=== PATIENT | female | born 1985 | race Caucasian/White ===

== ENCOUNTER 2020-09-29 11:00 | Outpatient (REF) | payer OTHER, SELFPAY | END 2020-09-29 11:01 | disposition home or self-care (01) | LOC: HO.LAB 11:00 | PROVIDERS: PCP Pediatrics; Visit Provider Internal Medicine | DX: Z20.822 Contact with and (suspected) exposure to COVID-19 (principal) | CPT/HCPCS: 36415; C9803; U0003 ==

== ENCOUNTER 2022-05-21 08:00 | Outpatient (REF) | payer OTHER, SELFPAY ==
--- NOTE | ~2022-05-21 | US_ITS ---
EXAMINATION: US LOWER EXTREMITY VENOUS (REFLUX EXAM), BILATERAL CLINICAL INDICATION: This is a 36-year-old female with venous insufficiency and varicose veins. COMPARISON: None. TECHNIQUE: Color flow triplex imaging and compression Doppler was performed to evaluate both the deep and the superficial systems bilaterally. To evaluate the superficial system, the examination was performed in the upright position. Color-flow Doppler ultrasound and compression ultrasound were utilized. In addition, maneuvers were utilized to demonstrate reflux. FINDINGS: 1. DEEP VENOUS ULTRASOUND OF THE RIGHT LOWER EXTREMITY: Common Femoral Vein: Compressible, normal respiratory variation and augmented flow. Femoral vein: Compressible, but with reflux of 2600 ms.. Popliteal Vein: Compressible, normal augmentation. Deep Reflux: There is evidence of reflux in the deep system in either the common femoral vein or the popliteal vein. There is no evidence of a Guzman's cyst. 2. SUPERFICIAL ULTRASOUND WITH DOPPLER OF RIGHT LOWER EXTREMITY: GREAT SAPHENOUS VEIN: Saphenofemoral Junction: 0.8 cm. There is no reflux. Mid Thigh: 0.5 cm. There is no reflux. Above Knee: 0.4 cm. There is no reflux. Below Knee: 0.2 cm. There is no reflux. Mid Calf: 0.2 cm. The reflux time is 544 ms. Ankle: 0.2 cm. There is no reflux. GSV REFLUX: There is isolated reflux in the mid calf. There is no reflux at the junction. DUPLICATED GREAT SAPHENOUS VEIN: None SMALL SAPHENOUS VEIN: Proximal: 0.2 cm. The reflux time is 3060 ms. Distal: 0.2 cm. There is no reflux. SSV REFLUX: There is reflux at the junction. VEIN OF GIACOMINI: None Imaged. PERFORATORS: There is a 0.1 recreational specialist in the mid thigh without reflux. VARICOSITIES: There are 0.4 cm, 0.6 cm, 0.3 cm varicose veins without reflux. The varicose veins are seen in the proximal thigh and mid calf, respectively. 3. DEEP VENOUS ULTRASOUND OF THE LEFT LOWER EXTREMITY: Common Femoral Vein: Compressible, normal respiratory variation and augmented flow. Femoral Vein: Compressible, normal color flow and augmentation. Popliteal Vein: Compressible, normal augmentation. Deep Reflux: There is no evidence of reflux in the deep system in either the common femoral vein or the popliteal vein. There is no evidence of a Guzman's cyst. 4. SUPERFICIAL ULTRASOUND WITH DOPPLER OF LEFT LOWER EXTREMITY: GREAT SAPHENOUS VEIN: Saphenofemoral Junction: 0.8 cm Mid Thigh: 0.3 cm Above Knee: 0.2 cm Below Knee: 0.2 cm. The reflux time is 1272 ms. There is no reflux above or below. Mid Calf: 0.3 cm Ankle: 0.2 cm GSV REFLUX: There is only isolated reflux below the knee. DUPLICATED GREAT SAPHENOUS VEIN: None SMALL SAPHENOUS VEIN: Proximal: 0.1 cm Distal: 0.2 cm SSV REFLUX: There is no reflux at the junction. VEIN OF GIACOMINI: None Imaged. PERFORATORS: There are 0.3 cm distal calf perforators without reflux. VARICOSITIES: There are 0.6 cm distal calf perforators with greater than 2 seconds of reflux. There is a 1.4 cm proximal thigh varicose vein with grade 2 seconds of reflux. There are 0.3 cm proximal calf varicose veins with greater than 3 seconds of reflux. US/US venous duplex LE BI IMPRESSION: 1. There is a patent right great saphenous vein without evidence of reflux at the junction. 2. There is a patent right small saphenous vein with reflux at the junction. 3. There are varicose veins in the right leg without reflux. 4. There is a patent left great saphenous vein without reflux at the junction. 5. There is a patent left small saphenous vein without reflux at the junction. 6. There are varicose veins with reflux of greater than 2 seconds throughout the left lower extremity.
== END 2022-05-21 08:01 | disposition home or self-care (01) ==
LOC: HO.US 08:00
PROVIDERS: PCP Internal Medicine; Visit Provider Surgery Vascular Surgery
DX: I83.12 Varicose veins of left lower extremity with inflammation (principal)
CPT/HCPCS: 93970

== ENCOUNTER → 2022-07-04 10:26 | Outpatient (BNVA) | payer OTHER, SELFPAY | PROVIDERS: PCP Internal Medicine; Visit Provider Surgery Vascular Surgery | DX: I83.12 Varicose veins of left lower extremity with inflammation (principal) | CPT/HCPCS: 37766 ==

== ENCOUNTER 2022-08-22 16:06 | Outpatient (REF) | payer OTHER, SELFPAY ==
--- NOTE | ~2022-08-22 | XR_ITS ---
EXAMINATION: XR CHEST CLINICAL INFORMATION: Cough COMPARISON: None TECHNIQUE: 2 views of the chest were obtained. FINDINGS: The lungs are well expanded. There is no focal consolidation, edema, or effusion. No pneumothorax. The cardiomediastinal silhouette is within normal limits. No acute osseous abnormality. XR/XR chest 2V IMPRESSION: Clear lungs.
== END 2022-08-22 16:07 | disposition home or self-care (01) ==
LOC: HO.HMGCX 16:06
PROVIDERS: PCP Internal Medicine
DX: R05.9 Cough, unspecified (principal)
CPT/HCPCS: 71046

== ENCOUNTER → 2022-09-11 09:16 | Outpatient (BNVA) | payer OTHER, SELFPAY | PROVIDERS: PCP Internal Medicine; Visit Provider Surgery Vascular Surgery | DX: I83.11 Varicose veins of right lower extremity with inflammation (principal) ==

== ENCOUNTER 2023-03-27 14:57 | Outpatient (REF) | payer OTHER, SELFPAY ==
--- NOTE | ~2023-03-27 | XR_ITS ---
EXAMINATION: XR KNEE, RIGHT CLINICAL INFORMATION: Pain in right knee COMPARISON: None available. TECHNIQUE: Four views of the right knee. FINDINGS: No fracture or joint effusion. Alignment is anatomic. Joint spaces are maintained. No abnormal soft tissue calcification. XR/XR knee RT 4V IMPRESSION: Unremarkable right knee.
--- NOTE | ~2023-03-27 | XR_ITS ---
EXAMINATION: XR HIP, LEFT CLINICAL INFORMATION: Other specified postprocedure states. COMPARISON: None available. TECHNIQUE: AP upright, AP supine, and frog-leg lateral views of the left hip. FINDINGS: There is no displaced pelvic fracture. There are moderate to severe degenerative changes in the left hip with bulky spurring in the superior lateral acetabulum and along the femoral head. There is a nonspecific lucency in the superior acetabulum measuring approximately 1.2 cm. Mild degenerative changes in the right hip. Some increased sclerosis in the pubic symphysis. XR/XR hip LT w PEL1V IMPRESSION: 1. Moderate to severe degenerative changes in the left hip. 2. Nonspecific lucency in the left superior acetabulum measuring approximately 1.2 cm. This may be degenerative, correlate with cross-sectional imaging as clinically indicated. 3. Mild degenerative changes in the right hip.
== END 2023-03-27 14:58 | disposition home or self-care (01) ==
LOC: HO.XRAY 14:57
PROVIDERS: PCP Internal Medicine; Visit Provider Nurse Practitioner Family
DX: M25.561 Pain in right knee (principal); M25.552 Pain in left hip; G89.29 Other chronic pain; Z91.81 History of falling; Z98.890 Other specified postprocedural states
CPT/HCPCS: 73502; 73564

== ENCOUNTER 2023-03-27 14:57 | Outpatient (AMB) | payer OTHER, SELFPAY ==
--- NOTE | 2023-03-27 15:06 | A.OFFVIS_ITS ---
Intake Vital Signs 03/27/23 15:11 Height 5 ft 4 in Weight 208 lb BMI 35.7 BP 113/56 L Blood Pressure Location Lt brachial Position Sitting Pulse 78 Pulse Source Pulse Oximeter Pulse Oximetry (%) 99 Oxygen Delivery Method Room Air Intake Visit Reasons: Pain in left hip Intake Note: Pain today 2/10. Allergies Penicillins Allergy (Intermediate, Verified 03/27/23 15:18) hives HPI Pain in left hip HPI Details Patient is a pleasant 37 years old female presents today with left hip and right knee pain. She reports history of left hip labrum repair surgery in 2013 and reports ongoing, chronic pain in her left hip since then. Patient notes that surgery was helpful but since having her 3rd baby 18 months ago, she noticed increase in left hip pain. She reports most pain in left hip with movements and intercourse, and cannot sleep on her left side. Patient reports she had follow up visit with her Orthopedic surgeon last week and received fluoroscopy guided left hip cortisone injection. She reports her pain is 2/10 and has ongoing pain relief since injection. She was advised to loose weight by her Orthopedic provider as she is not candidate for hip replacement surgery. Patient states she was started exercising and jagging recently to help her loose weight and believes she irritated her left hip pain even more. She also recently fell on sidewalk while walking during lunch hour at work and started on Medrol Cal which she finds partially effective. Denies any fever, weakness, numbness, tingling, bladder or bowel incontinence or saddle anesthesia. Location Left hip and right knee Duration Since 2013, intermittent Characteristics of symptom or complaint Pulsing, throbbing, stabbing, sharp, cramping, dull, sore, hurting, aching Aggravating or associated factors Movements, walking, climbing stairs, squatting, weather changes Relieving factors Ibuprofen, CBD gummies, Tylenol, Medrol Cal (day 3), ice/heat therapy Treatment Physical therapy, left hip surgery 2013, cortisone injection [facility] Medical History (Updated 03/27/23 @ 15:37 by ABHISHEK Champion) Hypothyroidism Surgical History (Updated 03/27/23 @ 15:37 by ABHISHEK Champion) History of hip surgery (~2013) Family History Maternal Grandmother Varicose veins of bilateral lower extremities with other complications Social History Alcohol intake: current Alcohol intake frequency: holidays/special occasions only Patient Tobacco Use Status: Former Tobacco user Substance Use Type: Other Substance Use Type Other:: CBD gummies Substance Use Frequency: Occasionally Review of Systems Const All systems reviewed & are unremarkable except as noted in HPI and below Physical Exam Vital Signs: Last Vital Signs Pulse 78 03/27/23 15:11 BP 113/56 L 03/27/23 15:11 Pulse Ox 99 03/27/23 15:11 Oxygen Delivery Method Room Air 03/27/23 15:11 BMI result Body Mass Index 35.7 General: Appears afebrile. Alert and oriented. Mood and affect appropriate. Follows and participates in conversation appropriately. Respiratory effort is unlabored. No cough. Able to transition from sit to stand unassisted. Ambulates with bilaterally normal heel strike and toe off. Back/Spine/Pelvis Cervical Spine: cervical ROM normal and No Cervical spine tenderness Thoracic/Lumbar Spine: thoracic and lumbar spine normal to inspection, thoraco- lumbar ROM normal, Lasegue's sign negative, straight leg raise negative bilaterally, No thoracic spinal tenderness and lumbar spinal tenderness at L5 Extrem General: Yes capillary refill normal, Yes no clubbing, cyanosis or edema and Yes no calf tenderness Right lower extremity: knee Details: normal to inspection, tenderness Location: of the patella; not of the medial joint line and not of the lateral joint line, normal ROM and crepitus (with flexion) Location: at the kneww; no ecchymosis and no unusual warmth Left lower extremity: hip/thigh (Limited ROM due to pain. Ron's test negative.) Details: normal to inspection and tenderness Location: of the hip Location: anterolaterally; no swelling, no ecchymosis, no crepitus and no unusual warmth Results Reviewed Results Reviewed: X-RAY LUMBAR SPINE 2-3 VIEWS 06/18/2018 at [facility] HISTORY: Back pain FINDINGS: There is mild endplate degenerative spur formation superior endplate of L3. Vertebral alignment is normal. The discs are of normal height. There is no evidence for spondylolysis or spondylolisthesis. IMPRESSION: Mild endplate degenerative spur formation superior endplate of L3 otherwise normal lumbosacral spine series. MR HIP WITH CONTRAST LEFT 11/03/2013 at [facility] HISTORY: 28-year-old with left hip pain. DIAGNOSIS: Labral tear. TECHNIQUE: Multiplanar T1 and PD fat-sat, standard coronal fast spin echo T2, coronal T2 fat sat and oblique axial 3D T1 gradient echo fat-sat imaging was done following the intraarticular injection of very dilute gadolinium/saline (0.15cc Magnevist) contrast for MR arthrography. Imaging was somewhat limited du e to large pelvic size. FINDINGS: There is contrast material distending the joint capsule. On coronal image #13 of series 13 and series 11, corresponding to oblique axial image #15 of series 5 and 8, there is a small linear focus of contrast accumulation which appears to be undermining a small portion of the posterosuperior labrum at the acetabular labral junction. Although the image quality is limited, the finding suggests a small focal labral detachment. There is a small notch-like focus of contrast accumulation along the anteroinferior labrum adjacent to the ligamentous attachment site, likely reflecting a small sublabral recess. Otherwise, articular cartilage appears grossly intact without any definite chondral defects. No loose fragments are seen. There is no evidence for fracture or AVN and there are no bursal fluid collections. IMPRESSION: 1. Image quality somewhat limited as discussed above, but findings suggest a small focal labral detachment involving the posterosuperior labrum at the labrocartilaginous junction. 2. No chondral defects, loose fragments, fracture or AVN. Assessment & Plan Assessment & Plan (1) Right knee pain: Code(s): M25.561 - Pain in right knee (2) Status post fall: Code(s): Z91.81 - History of falling (3) Chronic left hip pain: Code(s): M25.552 - Pain in left hip; G89.29 - Other chronic pain (4) History of hip surgery: Onset Date: ~2013 Comment: tore labrum repair Code(s): Z98.890 - Other specified postprocedural states Plan 1. Recommend formal physical therapy for chronic left hip pain with history of labral tear and repair. Script provided today for [facility] per patient's request. Patient had recent fluoroscopy guided left hip cortisone injection with ongoing good pain relief since injection. 2. No recent hip imaging was done per patient since left hip surgery. We will update her left hip and also right knee pain to assess for degenerative changes. Script provided for diclofenac potassium since Ibuprofen is minimally effective per patient. Side effects and precautions reviewed with patient. 3. Continue daily physical activity and weight loss. All questions were answered and the patient is in agreement with the treatment plan. Follow-up in 2-3 months to see response to physical therapy, if no response to physical therapy will consider further interventional strategy. Orders: Orders PT Evaluation and Treatment 03/27/23 G89.29 - Other chronic pain, M25.552 - Pain in left hip, M25.561 - Pain in right knee, Z98.890 - Other specified postprocedural states XR hip LT w PEL1V 03/27/23 G89.29 - Other chronic pain, M25.552 - Pain in left hip, Z91.81 - History of falling, Z98.890 - Other specified postprocedural states Medications: New diclofenac potassium Take it with food and full glass of water. Avoids other NSAIDs. 50 mg PO TID 30 days PRN 90 tabs 1RF pain G89.29 - Other chronic pain, M25.552 - Pain in left hip, M25.561 - Pain in right knee, Z91.81 - History of falling, Z98.890 - Other specified postprocedural states Coding Level of Care Code New Pt Level 4 (96153) Diagnoses Right knee pain M25.561 Status post fall Z91.81 Chronic left hip pain M25.552; G89.29 History of hip surgery Z98.890
[2023-03-27 15:11] VITALS: BP 113/56; PULSE 78; O2SAT 99; BMI 35.7
== END 2023-03-27 15:44 | disposition home or self-care (01) ==
PROVIDERS: PCP Internal Medicine; Visit Provider Nurse Practitioner Family
DX: M25.561 Pain in right knee (principal); Z91.81 History of falling; M25.552 Pain in left hip; G89.29 Other chronic pain; Z98.890 Other specified postprocedural states
CPT/HCPCS: 99204

== ENCOUNTER → 2023-04-07 14:58 | Outpatient (BNVA) | payer OTHER, SELFPAY | PROVIDERS: PCP Internal Medicine; Visit Provider Nurse Practitioner Family ==

== ENCOUNTER → 2023-04-07 15:06 | Outpatient (AMB) | payer OTHER, SELFPAY ==
[2023-04-07 14:59] VITALS: BMI 35.7
--- NOTE | 2023-04-07 14:59 | MHC.OFFVIS ---
Intake Vital Signs 04/07/23 14:59 Height 5 ft 4 in Weight 208 lb BMI 35.7 Comment wt per pt Intake Visit Reasons: XRAY FOLLOW UP/RESULTS Allergies Penicillins Allergy (Intermediate, Verified 04/07/23 14:59) hives HPI HPI Comments History of Present Illness Details Patient presents today for follow up and to review recent bilateral hip and right knee xrays. Patient is awaiting to start physical therapy at [facility] and has not tried diclofenac medication yet. She reports her left hip pain has tolerable since cortisone injection given mid-February at [facility] until today. She denies any recent trauma, injury or falls. Reports significant left hip pain with highest intensity rated at 8/10, worse with walking. Xray imaging are noted below. Patient is interested to repeat left hip cortisone injection through our office in May if no significant improvement with PT. Denies any recent cough, cold, infection, fever or other significant changes in medical history since last office visit. Patient denies any bladder or bowel incontinence or saddle anesthesia. PRIOR: Patient is a pleasant 37 years old female presents today with left hip and right knee pain. She reports history of left hip labrum repair surgery in 2013 and reports ongoing, chronic pain in her left hip since then. Patient notes that surgery was helpful but since having her 3rd baby 18 months ago, she noticed increase in left hip pain. She reports most pain in left hip with movements and intercourse, and cannot sleep on her left side. Patient reports she had follow up visit with her Orthopedic surgeon last week and received fluoroscopy guided left hip cortisone injection. She reports her pain is 2/10 and has ongoing pain relief since injection. She was advised to loose weight by her Orthopedic provider as she is not candidate for hip replacement surgery. Patient states she was started exercising and jagging recently to help her loose weight and believes she irritated her left hip pain even more. She also recently fell on sidewalk while walking during lunch hour at work and started on Medrol Cal which she finds partially effective. Denies any fever, weakness, numbness, tingling, bladder or bowel incontinence or saddle anesthesia. Location Left hip and right knee Duration Since 2013, intermittent Characteristics of symptom or complaint Pulsing, throbbing, stabbing, sharp, cramping, dull, sore, hurting, aching Aggravating or associated factors Movements, walking, climbing stairs, squatting, weather changes Relieving factors Ibuprofen, CBD gummies, Tylenol, Medrol Cal (day 3), ice/heat therapy Treatment Physical therapy, left hip surgery 2013, cortisone injection [facility] Medical History Hypothyroidism Surgical History History of hip surgery (~2013) Family History Maternal Grandmother Varicose veins of bilateral lower extremities with other complications Social History Alcohol intake: current Alcohol intake frequency: holidays/special occasions only Patient Tobacco Use Status: Former Tobacco user Substance Use Type: Other Review of Systems Const All systems reviewed & are unremarkable except as noted in HPI and below ENT Reports Normal hearing present Neuro Reports Normal hearing present and Denies confusion Psych Denies confusion Physical Exam Vital Signs: BMI result Body Mass Index 35.7 Const General: cooperative, alert and awake; No confusion Orientation/consciousness: patient oriented x3 and No confusion Resp Effort & Inspection: able to speak in complete sentences, no audible wheezes and no cough Neuro General: patient oriented x3 and No confusion Cranial nerves: Yes Normal hearing present Cognition (Neuro): normal cognition Psych Mental Status: mental status grossly normal Speech and movement: Clear speech present Affect: normal affect Attitude: cooperative Thought process: Normal thought process present Thought content: Normal thought content present and No Depressive thoughts present Insight: Good insight present (Psych) Judgement: Good judgement present (Psych) Results Reviewed Results Reviewed: XR KNEE, RIGHT 03/27/23 CLINICAL INFORMATION: Pain in right knee FINDINGS: No fracture or joint effusion. Alignment is anatomic. Joint spaces are maintained. No abnormal soft tissue calcification. IMPRESSION: Unremarkable right knee. XR HIP, LEFT 03/27/23 FINDINGS: There is no displaced pelvic fracture. There are moderate to severe degenerative changes in the left hip with bulky spurring in the superior lateral acetabulum and along the femoral head. There is a nonspecific lucency in the superior acetabulum measuring approximately 1.2 cm. Mild degenerative changes in the right hip. Some increased sclerosis in the pubic symphysis. IMPRESSION: 1. Moderate to severe degenerative changes in the left hip. 2. Nonspecific lucency in the left superior acetabulum measuring approximately 1.2 cm. This may be degenerative, correlate with cross-sectional imaging as clinically indicated. 3. Mild degenerative changes in the right hip. Assessment & Plan Assessment & Plan (1) Right knee pain: Code(s): M25.561 - Pain in right knee (2) Chronic left hip pain: Code(s): M25.552 - Pain in left hip; G89.29 - Other chronic pain (3) History of hip surgery: Onset Date: ~2013 Comment: tore labrum repair Code(s): Z98.890 - Other specified postprocedural states Plan 1. Start physical therapy for chronic left hip pain with history of labral tear and repair at [facility] per patient's request. Patient had recent fluoroscopy guided left hip cortisone injection with ongoing good pain relief since injection. 2. Tentatively plan for Left hip intra-articular steroid injection with local and fluoroscopy in mid-May if no significant improvement with physical therapy and home exercise program. 3. Continue daily physical activity and weight loss. All questions were answered and the patient is in agreement with the treatment plan. Follow-up as needed. I hereby testify that I spent 9 minutes in conversation with this patient as well as with planning and coordinating care for this patient and organizing this note. Telehealth Telehealth Location of provider rendering services: practice address Location of patient: address on file Patient Identification confirmed using: Name, : Yes Telehealth method: voice only Patient verbally consented to treatment: Yes Patient verbally consented to billing insurance company: Yes Patient informed of any privacy concerns related to visit: Yes Minutes spent on Phone/Video with Pt.: 9 Coding Level of Care Code Tele Est Pt Level 4 (74141) Diagnoses Right knee pain M25.561 Chronic left hip pain M25.552; G89.29 History of hip surgery Z98.890
== END | disposition home or self-care (01) ==
LOC: HO.PMC 14:58
PROVIDERS: PCP Internal Medicine; Visit Provider Nurse Practitioner Family
DX: M25.561 Pain in right knee (principal); M25.552 Pain in left hip; G89.29 Other chronic pain; Z98.890 Other specified postprocedural states
CPT/HCPCS: 99214

== ENCOUNTER 2024-01-05 08:48 | Outpatient (AMB) | payer OTHER, SELFPAY ==
--- NOTE | 2024-01-05 08:56 | A.OFFVIS_ITS ---
Vital Signs 01/05/24 08:57 Height 5 ft 4 in Intake Visit Reasons: Discuss micro , last micro in 2021 Intake Note: PRN follow up for Right LE VV, to discuss right leg micro, Hx of Left LE micro 07/04/22 & 08/26/22, states Right LE venous cluster mostly behind right knee, its causing more pain. Staets aching and painful consistently Accompanied by: Self / Same As Patient Allergies Penicillins Allergy (Intermediate, Verified 01/05/24 09:09) hives HPI HPI Discuss micro , last micro in 2021: Details: Very pleasant 38-year-old female presents for follow-up evaluation regarding varicose veins. She had actually undergone left leg microphlebectomy with us nearly 2 years ago. She complains of right lower extremity discomfort. She does have some generalized knee pain and overall tired and weak lower extremities. She does have a right posterior calf and thigh varicosities that seemed to bother her. She now presents to us for re-evaluation. [facility] Medical History Hypothyroidism Surgical History History of hip surgery (~2013) Family History Maternal Grandmother Varicose veins of bilateral lower extremities with other complications Social History Alcohol intake: current Alcohol intake frequency: holidays/special occasions only Patient Tobacco Use Status: Former Tobacco user Substance Use Type: Other Review of Systems Const Reports as per HPI ENT Reports no additional complaints Card Denies chest pain, Denies chest pain at rest and Denies chest pain with activity Resp Denies chest congestion and Denies cough GI Reports no additional complaints Musc Details: pain over varicosities, aching of lower extremities, swelling, cramping, heaviness and tiredness, itching Denies abnormal gait Skin/Breast Reports pruritus and Denies wounds Neuro Reports no additional complaints and Denies abnormal gait Psych Denies no additional complaints Physical Exam Const General: cooperative, healthy appearing and comfortable Orientation/consciousness: oriented to person, oriented to place and oriented to time Neck Carotids: no bruits Chest Chest palpation & inspection: normal inspection of the chest and normal palpation of entire chest wall Resp Effort & Inspection: normal respiratory effort and able to speak in complete sentences Cardio Rate: regular rate Heart sounds: S1 normal heart sound present and S2 normal heart sound present Peripheral pulses: Peripheral pulses 2+ throughout GI Inspection: Yes normal to inspection Skin Other: +2 edema, large rope-like varicosities greater than 4 mm right posterior thigh and calf CEAP Classification C4 - skin color changes Ep - Etiology Primary As - superficial veins P - reflux General skin exam: dry skin Neuro General: oriented to person, oriented to place and oriented to time Extrem Right lower extremity: full ROM, normal capillary refill and edema Left lower extremity: full ROM, normal capillary refill and edema Psych Mental Status: mental status grossly normal Assessment & Plan Assessment & Plan (1) Varicose veins of right lower extremity with inflammation: Code(s): I83.11 - Varicose veins of right lower extremity with inflammation Category: Medical Plan: In short patient has discomfort of the right lower extremity. Unclear etiology of this and I do suspect there is a component of musculoskeletal pain for this. I have taken the liberty of ordering a repeat right lower extremity venous insufficiency test as there was some focal areas positive in the past. We will ensure that this is ruled out. In addition we did discuss conservative measures including compression elevation and exercise She will follow up with us after testing. (2) Varicose veins of left lower extremity with inflammation: Comment: 07/04/2022 - left leg microphlebectomy 08/26/2022 - left leg microphlebectomy Code(s): I83.12 - Varicose veins of left lower extremity with inflammation Category: Medical Plan: See above Orders: Orders US venous duplex LE RT 1 Week I83.11 - Varicose veins of right lower extremity with inflammation
== END 2024-01-05 09:36 | disposition home or self-care (01) ==
PROVIDERS: PCP Internal Medicine; Visit Provider Surgery Vascular Surgery
DX: I83.11 Varicose veins of right lower extremity with inflammation (principal); I83.12 Varicose veins of left lower extremity with inflammation
CPT/HCPCS: 99213

== ENCOUNTER → 2024-01-05 08:48 | Outpatient (BNVA) | payer OTHER, SELFPAY | PROVIDERS: PCP Internal Medicine; Visit Provider Surgery Vascular Surgery | DX: I83.11 Varicose veins of right lower extremity with inflammation (principal); I83.12 Varicose veins of left lower extremity with inflammation | CPT/HCPCS: 99212 ==

== ENCOUNTER 2024-01-12 08:30 | Outpatient (REF) | payer OTHER, SELFPAY ==
--- NOTE | ~2024-01-12 | US_ITS ---
EXAMINATION: US LOWER EXTREMITY VENOUS (REFLUX EXAM), RIGHT CLINICAL INDICATION: Varicose veins of the right lower extremity with inflammation COMPARISON: None. TECHNIQUE: Color flow triplex imaging and compression Doppler was performed to evaluate both the deep and the superficial systems bilaterally. To evaluate the superficial system, the examination was performed in the upright position. Color-flow Doppler ultrasound and compression ultrasound were utilized. In addition, maneuvers were utilized to demonstrate reflux. FINDINGS: RIGHT: 1. DEEP VENOUS ULTRASOUND OF THE RIGHT LOWER EXTREMITY: Common Femoral Vein: Compressible, normal respiratory variation and augmented flow. Popliteal Vein: Compressible, normal augmentation. Deep Venous Reflux: Elevated reflux seen within the mid femoral vein measuring 1744 ms. There is no evidence of a Guzman's cyst. 2. SUPERFICIAL ULTRASOUND WITH DOPPLER OF RIGHT LOWER EXTREMITY: RIGHT GREAT SAPHENOUS VEIN: Saphenofemoral Junction: 8 mm. No reflux. Proximal Thigh: 5 mm. No reflux. Mid Thigh: 4 mm. No reflux. Above Knee: 4 mm. No reflux. Below Knee: 3 mm. No reflux. Mid Calf: 2 mm. No reflux. Ankle: 2 mm. No reflux. DUPLICATED GREAT SAPHENOUS VEIN: None RIGHT SMALL SAPHENOUS VEIN: Proximal: 3 mm. No reflux. Distal: 2 mm. No reflux. PERFORATORS: None VARICOSE VEINS: Right mid calf small saphenous vein: 4 mm. 1820 ms. US/US venous duplex LE RT IMPRESSION: 1. Abnormal deep venous reflux within the mid femoral vein. 2. Mid calf small saphenous vein with abnormal reflux. Abnormal lower extremity venous reflux times: Superficial and deep calf veins: >500 ms Femoropopliteal veins: >1000 ms Perforating veins: >350 ms Shannon N, Pascual J, Alex L, Deedee AK, Adam SS, Laina Delgado M, Megan WH. Definition of venous reflux in lower-extremity veins.J Vasc Surg. 2003; [id number].
== END 2024-01-12 08:31 | disposition home or self-care (01) ==
LOC: HO.US 08:30
PROVIDERS: Visit Provider Surgery Vascular Surgery
DX: I83.11 Varicose veins of right lower extremity with inflammation (principal)
CPT/HCPCS: 93971

== ENCOUNTER 2024-02-09 12:56 | Outpatient (AMB) | payer OTHER, SELFPAY ==
--- NOTE | 2024-02-09 13:00 | MHC.OFFVIS ---
Intake Visit Reasons: Follow Up 01/11 Intake Note: Patient presents for US follow up. Patient states she has bilateral leg currently. Accompanied by: Self / Same As Patient Allergies Penicillins Allergy (Intermediate, Verified 02/09/24 13:02) khushi [facility] HPI Follow Up 01/11 : Details: Very pleasant 38-year-old female presents for follow-up regarding right lower extremity varicosities. She would actually undergone left leg intervention with us nearly 2 years ago. She says that the left leg is doing fairly well but is concerned about large varicosities in the right thigh and calf. They have been a source of irritation and discomfort for her. Of note she has worn compression with minimal relief PFSH Medical History Hypothyroidism Surgical History History of hip surgery (~2013) Family History Maternal Grandmother Varicose veins of bilateral lower extremities with other complications Social History Alcohol intake: current Alcohol intake frequency: holidays/special occasions only Patient Tobacco Use Status: Former Tobacco user Substance Use Type: Other Review of Systems Const Reports as per HPI ENT Reports no additional complaints Card Denies chest pain, Denies chest pain at rest and Denies chest pain with activity Resp Denies chest congestion and Denies cough GI Reports no additional complaints Musc Details: pain over varicosities, aching of lower extremities, swelling, cramping, heaviness and tiredness, itching Denies abnormal gait Skin/Breast Reports pruritus and Denies wounds Neuro Reports no additional complaints and Denies abnormal gait Psych Denies no additional complaints Physical Exam Const General: cooperative, healthy appearing and comfortable Orientation/consciousness: oriented to person, oriented to place and oriented to time Neck Carotids: no bruits Chest Chest palpation & inspection: normal inspection of the chest and normal palpation of entire chest wall Resp Effort & Inspection: normal respiratory effort and able to speak in complete sentences Cardio Rate: regular rate Heart sounds: S1 normal heart sound present and S2 normal heart sound present Peripheral pulses: Peripheral pulses 2+ throughout GI Inspection: Yes normal to inspection Skin Other: +2 edema, large rope-like varicosities greater than 4 mm right calf and thigh CEAP Classification C4 - skin color changes Ep - Etiology Primary As - superficial veins P - reflux General skin exam: dry skin Neuro General: oriented to person, oriented to place and oriented to time Extrem Right lower extremity: full ROM, normal capillary refill and edema Left lower extremity: full ROM, normal capillary refill and edema Psych Mental Status: mental status grossly normal Results Reviewed Results Reviewed: Brief summary of venous insufficiency testing is as follows: right great saphenous vein: negative right small saphenous vein: negative right accessory vein: none present Please note there is no evidence of any venous aneurysms or significant tortuosity Assessment & Plan Assessment & Plan (1) Varicose veins of right lower extremity with inflammation: Code(s): I83.11 - Varicose veins of right lower extremity with inflammation Category: Medical Plan: This patient has varicose veins with inflammation. They continue to be a source of discomfort for the patient. The patient has tried conservative treatment with compression, leg elevation and exercise program for over 3 months time. They have been compliant with all treatment. This has provided minimal relief for the patient. I do not anticipate this course of treatment will alter the underlying etiology. The patient has been scheduled for lower extremity venous treatment inclusive of --- right leg microphlebectomy. Risks, benefits, and complications of this procedure has been discussed in detail with the patient including but not limited to bleeding, infection, and the development of a DVT. The patient has demonstrated a clear understanding and has consented. We will schedule the patient as soon as possible. Thank you for allowing us to participate in this patient's care. If there are any questions or concerns please do not hesitate to contact us. (2) Varicose veins of left lower extremity with inflammation: Comment: 07/04/2022 - left leg microphlebectomy 08/26/2022 - left leg microphlebectomy Code(s): I83.12 - Varicose veins of left lower extremity with inflammation Category: Medical Plan: Will treat right leg Coding Level of Care Code Est Pt Level 4 (05062) Diagnoses Varicose veins of right lower extremity with inflammation I83.11 Varicose veins of left lower extremity with inflammation I83.12
== END 2024-02-09 13:22 | disposition home or self-care (01) ==
PROVIDERS: Visit Provider Surgery Vascular Surgery
DX: I83.11 Varicose veins of right lower extremity with inflammation (principal); I83.12 Varicose veins of left lower extremity with inflammation
CPT/HCPCS: 99214

== ENCOUNTER → 2024-02-09 12:56 | Outpatient (BNVA) | payer OTHER, SELFPAY | PROVIDERS: Visit Provider Surgery Vascular Surgery | DX: I83.11 Varicose veins of right lower extremity with inflammation (principal); I83.12 Varicose veins of left lower extremity with inflammation | CPT/HCPCS: 99212 ==

== ENCOUNTER 2024-02-19 07:30 | Outpatient (AMB) | payer OTHER, SELFPAY ==
[2024-02-19 07:35] VITALS: BMI 35.7
--- NOTE | 2024-02-19 07:35 | MHC.OFFVIS ---
Vital Signs 02/19/24 07:35 Height 5 ft 4 in Weight 208 lb BMI 35.7 Intake Visit Reasons: Right LE Micro Accompanied by: Self / Same As Patient Allergies Penicillins Allergy (Intermediate, Verified 02/19/24 07:35) hives [facility] Medical History Hypothyroidism Surgical History History of hip surgery (~2013) Family History Maternal Grandmother Varicose veins of bilateral lower extremities with other complications Social History Alcohol intake: current Alcohol intake frequency: holidays/special occasions only Patient Tobacco Use Status: Former Tobacco user Substance Use Type: Other Physical Exam Vital Signs: BMI result Body Mass Index 35.7 Office Procedures Vascular Office Procedure Details Details: Diagnosis: Right Leg varicose veins with inflammation Procedure: Right leg Microphlebectomy Anesthesia: Local Infiltration 20 cc, Tumescent: 0 cc. Varicose veins were marked in the standing position on the right leg and the patient was then placed in the prone position. The right lower extremity was prepared and draped to allow knee flexion in the sterile field. The patient had large superficial varicose veins with significant symptoms of pain. It was therefore determined to perform microphlebectomies of the clusters of varicose veins. The patient had bulging varicose veins which were previously marked in the standing position. A small stab incision was made longitudinally directly overlying the varicose vein in the calf and the varicose vein was grasped with a hemostat aided by a vein hook. It was then dissected as far proximally and distally as possible and avulsed. A total of 21 stab incisions were made and the procedure of stab phlebectomies was repeated 21 times. Hemostasis was checked and stab incision sites were closed with steri-strips and sterile dressing was given with gauze and krilex wrap followed by an dom bandage. There were no complications and blood loss was minimal. Post-Op instructions were given and a follow-up appointment was recommended. 21421 - Stab Phlebectomy >20 All charges added?: Procedure code (CPT) selection complete Assessment & Plan Assessment & Plan (1) Varicose veins of right lower extremity with inflammation: Comment: 02/19/2024 - right leg microphlebectomy Code(s): I83.11 - Varicose veins of right lower extremity with inflammation Category: Medical Plan: See op note Coding Level of Care Code Est Pt Level 4 (86429) Diagnoses Varicose veins of right lower extremity with inflammation I83.11 CPT Codes Details - Vascular 6: 41440 - Stab Phlebectomy >20 ([id number])
== END 2024-02-19 12:03 | disposition home or self-care (01) ==
PROVIDERS: Visit Provider Surgery Vascular Surgery
DX: I83.11 Varicose veins of right lower extremity with inflammation (principal)
CPT/HCPCS: 37766

== ENCOUNTER → 2024-02-19 07:30 | Outpatient (BNVA) | payer OTHER, SELFPAY | PROVIDERS: Visit Provider Surgery Vascular Surgery | DX: I83.11 Varicose veins of right lower extremity with inflammation (principal) | CPT/HCPCS: 37766 ==

== ENCOUNTER 2024-03-01 13:16 | Outpatient (AMB) | payer OTHER, SELFPAY ==
[2024-03-01 13:31] VITALS: BMI 35.7
--- NOTE | 2024-03-01 13:31 | MHC.OFFVIS ---
Vital Signs 03/01/24 13:31 Height 5 ft 4 in Weight 208 lb BMI 35.7 Intake Visit Reasons: 2 week follow up Right Micro 02/19/24 Intake Note: 2 week follow up Right LE micro 02/19/24, pt states that she still has some steri strips on and some hard lumps where the incisions are and states she also has 2 large rope like VV behind her Right knee that are still bothersome. Pt also states she has tried to wear compression but they gid into the back of her knee. Also states that the Left LE has one painful VV on her Left calf. Accompanied by: Self / Same As Patient Allergies Penicillins Allergy (Intermediate, Verified 03/01/24 13:36) hives HPI HPI 2 week follow up Right Micro 02/19/24: Details: Very pleasant 38-year-old female presents for follow-up regarding right lower extremity varicosities. She most recently underwent right leg microphlebectomy. She did have some postprocedure bruising. In general appears to be fairly happy with results and pain and discomfort have decreased. Now for routine follow-up. [facility] Medical History Hypothyroidism Surgical History History of hip surgery (~2013) Family History Maternal Grandmother Varicose veins of bilateral lower extremities with other complications Social History Alcohol intake: current Alcohol intake frequency: holidays/special occasions only Patient Tobacco Use Status: Former Tobacco user Substance Use Type: Other Review of Systems Const All systems reviewed & are unremarkable except as noted in HPI and below Reports no additional complaints ENT Reports Normal hearing present Card Denies chest pain, Denies chest pain at rest, Denies chest pain with activity and Denies pedal edema Resp Denies cough GI Denies abdominal pain Musc Denies abnormal gait, Denies muscle cramps and Denies radiating pain into limb Skin/Breast Denies skin ulcer and Denies wounds Neuro Reports Normal hearing present and Denies abnormal gait Psych Reports no additional complaints Physical Exam Vital Signs: BMI result Body Mass Index 35.7 Const General: cooperative, healthy appearing and comfortable Orientation/consciousness: oriented to person, oriented to place and oriented to time HEENT Head: Yes normal to inspection Neck Neck: Yes normal visual inspection Carotids: no bruits Chest Chest palpation & inspection: normal inspection of the chest Resp Effort & Inspection: normal respiratory effort and able to speak in complete sentences Auscultation: clear to auscultation bilaterally, no crackles, no rales, no rhonchi and no wheezes Cardio Rate: regular rate Rhythm: regular rhythm Heart sounds: S1 normal heart sound present and S2 normal heart sound present Bruits: no carotid bruits Peripheral pulses: Peripheral pulses 2+ throughout GI Inspection: Yes normal to inspection Skin Wounds: no wounds Hair: normal Neuro General: oriented to person, oriented to place and oriented to time Cranial nerves: Yes CN's II-XII intact bilaterally and Yes Normal hearing present Cognition (Neuro): normal cognition Motor exam (neuro): 5/5 motor strength present throughout Extrem Other: venous exam: Right lower extremity phlebectomy sites appear to be healing well. There is a fair amount of bruising. There is still few varicosities behind the knee. General: No clubbing, No cyanosis and No edema Psych Appearance: grossly normal Mental Status: mental status grossly normal Speech and movement: Normal speech and movement present Assessment & Plan Assessment & Plan (1) Varicose veins of right lower extremity with inflammation: Comment: 02/19/2024 - right leg microphlebectomy Code(s): I83.11 - Varicose veins of right lower extremity with inflammation Category: Medical Plan: In short patient has done extremely well status post right lower extremity microphlebectomy. She does have some residual varicosities. We will have to re-evaluate once the bruising has come down. We did recommend a 5 week follow-up should symptoms and discomfort persist. We also did discuss conservative measures including compression elevation and exercise. Thank you for allowing us to assist in her care. If there are any questions or concerns please do not hesitate to contact us Coding Level of Care Code Est Pt Level 3 (06543) Diagnoses Varicose veins of right lower extremity with inflammation I83.11
== END 2024-03-01 13:59 | disposition home or self-care (01) ==
LOC: HO.HVS 13:16
PROVIDERS: Visit Provider Surgery Vascular Surgery
DX: I83.11 Varicose veins of right lower extremity with inflammation (principal)
CPT/HCPCS: 99213

== ENCOUNTER → 2024-03-01 13:16 | Outpatient (BNVA) | payer OTHER, SELFPAY | PROVIDERS: Visit Provider Surgery Vascular Surgery | DX: I83.11 Varicose veins of right lower extremity with inflammation (principal); Z98.890 Other specified postprocedural states | CPT/HCPCS: 99212 ==